=== PATIENT | female | born 1990 | race Caucasian/White ===

== ENCOUNTER 2016-11-27 05:55 | Inpatient (IN) | payer OTHER ==
[~2016-11-27] VITALS: Ht 152.4 cm; Wt 67.6 kg
[2016-11-27] MEDS ORDERED: LACTATED RINGER'S 1,000 ML IV PRN (06:17)
[2016-11-27] MEDS: LACTATED RINGER'S 1,000 ML IV SCH ×3 (06:27→22:13)
[2016-11-27] MEDS ORDERED: LIDOCAINE 1% (MPF) 30 ML INJ INJ PRN (06:30)
[2016-11-27] MEDS ORDERED: IBUPROFEN 600 MG TAB PO PRN (06:30)
[2016-11-27] MEDS ORDERED: MISOPROSTOL 200 MCG TAB PR PRN ×2 (06:30→22:30)
[2016-11-27] MEDS ORDERED: AMPICILLIN 2 GM/NS (PMX) 100 ML IV ONE (06:30)
[2016-11-27] MEDS ORDERED: OXYTOCIN 30 UNITS/LR 500 ML IV SCH ×3 (06:30→08:50)
[2016-11-27] MEDS ORDERED: METHYLERGONOVINE 0.2 MG INJ IM PRN (06:30)
[2016-11-27] MEDS ORDERED: OXYTOCIN 30 UNITS/LR 500 ML IV PRN ×2 (06:30→22:30)
[2016-11-27] MEDS ORDERED: ACETAMINOPHEN/CODEINE #3 TAB PO PRN ×3 (06:30→22:30)
[2016-11-27] MEDS ORDERED: CARBOPROST 250 MCG INJ IM PRN ×2 (06:30→22:30)
[2016-11-27] MEDS ORDERED: BUTORPHANOL 2 MG INJ IV PRN ×2 (06:30)
[2016-11-27 07:22] LABS: ADD SCAN DIFF NO
[2016-11-27 07:38] LABS: BASOPHILS % 0.1 % (0.0-2.0); EOSINOPHILS # 0.1 10^3/ul (0.0-0.5); HEMATOCRIT 38.3 % (37.0-47.0); HEMOGLOBIN 12.9 g/dl (12.0-16.0); LYMPHOCYTES # 2.4 10^3/ul (0.8-2.9); LYMPHOCYTES % 26.7 % (15.0-51.0); MEAN CORPUSCULAR HEMOGLOBIN 30.7 pg (29.0-33.0); MEAN CORPUSCULAR HGB CONC 33.7 g/dl (32.0-37.0); MEAN CORPUSCULAR VOLUME 91.2 fl (82.0-101.0); MEAN PLATELET VOLUME 10.4 fl (7.4-10.4); MONOCYTE # 0.5 10^3/ul (0.3-0.9); MONOCYTES % 5.9 % (0.0-11.0); NEUTROPHIL # 5.8 10^3/ul (1.6-7.5); NEUTROPHILS % 65.8 % (39.0-77.0); PLATELET COUNT 237 10^3/UL (140-415); RED CELL DISTRIBUTION WIDTH 13.3 % (11.5-14.5); WHITE BLOOD COUNT 8.8 10^3/ul (4.8-10.8)
[2016-11-27 07:51] LABS: INR 0.96; PROTIME 12.8 Sec (12.2-14.2)
[2016-11-27 07:52] LABS: PARTIAL THROMBOPLASTIN TIME 25.6 Sec (25.0-35.0)
[2016-11-27] MEDS ORDERED: DINOPROSTONE 10 MG VAG SUPP VAG ONE (08:00)
--- NOTE | 2016-11-27 08:38 | HP ---
Date/Time of Note Date/Time of Note DATE: 11/27/16 TIME: 08:36 OB - History Hx of Present Free Text/Dictation G1 with IUP at 40.2 weeks here for IOL Care: Good Care Ultrasounds: Normal mid trimester US Obstetrical Complications: None Medical Complications: None Past Family/Social History * Past Medical, Surgical, Family and Obstetric Histories reviewed from chart. OB Admission Exam Vital Signs Vital Signs EFW is 8 LB Physical Exam HEENT: WNL Heart: Rhythm Normal Lungs: Clear, Equal Abdomen: WNL Extremities: Normal Reflexes: Normal Cervical Dilatation: 2cm Effacement: 75% Station: -2 Membranes: Intact Last 72 hours Lab Results CBC & BMP 11/27/16 06:20 OB Assessment/Plan Other Assessment: post date here for IOL Other plan: Pitocin Amp for GBS + YENNIFER MARTINEZ MD November 27, 2016 08:38
[2016-11-27] MEDS: AMPICILLIN 1 GM/NS (PMX) 50 ML IV SCH ×3 (11:34→19:32)
[2016-11-27] MEDS ORDERED: FENTAnyl 2MCG/ML-ROPIV 0.2% 100 ML ONE (14:37)
[2016-11-27] MEDS ORDERED: NALOXONE (0.4 MG/ML) INJ IV PRN (17:00)
[2016-11-27] MEDS ORDERED: FENTAnyl 2MCG/ML-ROPIV 0.2% 100 ML BAG EPI SCH (17:00)
[2016-11-27] MEDS: LACTATED RINGER'S 1,000 ML IV* SCH (22:09)
[2016-11-27] MEDS ORDERED: DIBUCAINE 1% 30 GM OINT PR PRN (22:30)
[2016-11-27] MEDS ORDERED: DIPHENHYDRAMINE 25 MG CAP PO PRN (22:30)
[2016-11-27] MEDS ORDERED: ONDANSETRON 4 MG TAB PO PRN (22:30)
[2016-11-27] MEDS ORDERED: ONDANSETRON 4 MG INJ IV PRN (22:30)
[2016-11-27] MEDS ORDERED: DIPHENHYDRAMINE 50 MG INJ IV PRN (22:30)
[2016-11-27] MEDS ORDERED: MAGNESIUM HYDROXIDE 30ML CUP PO PRN (22:30)
[2016-11-27] MEDS ORDERED: LANOLIN 7 GM TUBE TOP PRN (22:30)
[2016-11-27] MEDS ORDERED: NA PHOSPHATE/BIPHOS 133 ML ENEMA PR PRN (22:30)
[2016-11-27] MEDS ORDERED: SENNA/DOCUSATE NA (8.6MG/50MG) TAB PO PRN (22:30)
--- NOTE | 2016-11-27 22:30 | LDN ---
Date/Time of Note Date/Time of Note DATE: 11/27/16 TIME: 22:12 Delivery Summary with h/o without complication (first baby was 5 LBs). she was admitted for IOL and progressed to complete dilation. sh pushed for a short time and vertex delivered. I applied gentle symmetric traction but the anterior shoulder did no deliver. I did not apply excessive traction. I immediately called shoulder dystocia and asked nursing staff to call NICU and apply suprapubic pressure and [place]. RNs sharply flexed the maternal high into maternal abdomen. I applied gentle symmetric traction. I cut a large 2nd degree MLE. Epidural was working well. Anterior shoulder did not deliver. I performed Guillaume maneuver by inserting 2 fingers in to posterior aspect of the anterior shoulder thus applying pressure o rotate the anterior shoulder. I was able to deliver the anterior shoulder. he rest of the body delivered easily. Cord was clamped and cut. a piece of the cord was double clamped for cord gases. placenta was delivered spontaneously and intact. her MLE was extended to 4th degree laceration which was repaired in normal fashion. Th 4th degree was repaired with 4-0 Chromic on SH. the 3rd degree was repaired with 4 Figure of sutures of 2-0 Vicryl in anal sphincter in Posterior, inferior and superior and anterior fashion. 2nd degree was repaired with 3-0 Vicryl. I informed and explined to pt all the events that occurred during . EBL: 300 Placenta Delivered: Spontaneously Meconium: Light Episiotomy: Yes Indication for episiotomy shoulder dystocia Perineal laceration: 4 Laceration repair: see above Anesthesia type: Epidural Sponge & Needle done & correct: Yes All needle counts correct: Yes Any foreign bodies felt in the: No Problems: Infant Delivery Information Sex Sex: female Apgars 1 Minute: 3 5 Minute: 7 Suctioning Nose & mouth suctioned at tonio: Yes Delee suction performed: No Umbilical Cord Umbilical cord with: 3 Vessels Cord presentations: nuchal cord Nuchal cord present X: 1 Cord Blood was obtained: Yes Mother & Baby Disposition Disposition Mom & Baby to Maternity; Good: No Mom transferred to: Other (maternity) Baby to NICU: Yes (fo hours of obervation ) YENNIFER MARTINEZ MD November 27, 2016 22:28
--- NOTE | 2016-11-27 23:19 | DELSUM ---
Delivery Summary A-C Datetime Report Generated by CPN: 11/27/2016 23:19 DELIVERY PERSONNEL Compounding And Finishing Supervisor: Long, Teri MATERNAL INFORMATION Delivery Anesthesia: Epidural Medications in Delivery: oxytocin 30units in 500ml lr Estimated Blood Loss (ml): 300 Placenta Cultured: No Maternal Complications: None RN Comments: SHOULDER DYSTOCIA; NUCHAL CORD TIGHT X1; HEAD OUT AT 2128 AND BABY DELIVERED AT 2130; NICU AND CODE APAGAR CALLED; APGARS 3 AND 7; BABY 7LB 13OZ; LAST WAS AT 38 WEEKS 5LBS AND SOME OZ; PLACENTA TO PATHOLOGY; 2ND DEGREE EPISIOTOMY BEFORE DELIVERY OF HEAD; EXTENDED TO 4TH DEGREE LACERATION REPAIR LABOR SUMMARY EDC: 11/25/2016 00:00 No. Babies in Womb: 1 Attempted: No Labor Anesthesia: Epidural LABOR INFORMATION Reason for Induction: Postterm Cervical Ripening Agents: Cervidil Oxytocin: Augmentation Group B Beta Strep: Positive Antibiotics # of Doses: 4 Antibiotics Time of Last Dose: 11/27/2016 19:30 Steroids Given: None Reason Steroids Not Administered: Not Applicable MEMBRANES Membranes Rupture Method: Artificial Rupture of Membranes: 11/27/2016 12:46 Length of Rupture (hr): 8.73 Amniotic Fluid Color: Clear Amniotic Fluid Amount: Small Amniotic Fluid Odor: None STAGES OF LABOR Stage 3 hr: 0 Stage 3 min: 10 VAGINAL DELIVERY Episiotomy: Median Laceration Extension: Fourth Degree Laceration Type: Perineal; Vaginal Laceration Repair: Yes Initial Vag Sponge Count: 20 Final Vag Sponge Count: 20 Initial Vag Sharps Count: 1 Final Vag Sharps Count: 4 Sponge Count Correct: Yes Sharps Count Correct: Yes BABY A INFORMATION Delivery Date/Time: 11/27/2016 21:30 Method of Delivery: Vaginal Born in Route : No : N/A Forceps: N/A Vacuum Extraction: N/A Shoulder Dystocia : Yes SHOULDER DYSTOCIA BABY A Delivery of Head: 11/27/2016 21:28 Delivery Date/Time: 11/27/2016 21:30 Time Head to Delivery : 2.0 1st Intervention to Resolve: Episiotomy 2nd Intervention to Resolve: McRobert's Maneuver 3rd Intervention to Resolve: Suprapubic Pressure Verify NO Fundal Pressure: No Fundal Pressure Applie Arm Under Symphisis at Del: Left PRESENTATION/POSITION BABY A Presentation: Cephalic Presentation: Cephalic Cephalic Presentation: Vertex Vertex Position: Left Occipital Anterior Breech Presentation: N/A PLACENTA INFORMATION BABY A Placenta Delivery Time : 11/27/2016 21:40 Placenta Method of Delivery: Spontaneous Placenta Status: Delivered SCORES BABY A Heart Rate 1 min: >100 bpm Resp Effort 1 min: Slow, Irregular Reflex Irritability 1 min: No Response Muscle Tone 1 min: Flaccid Color 1 min: Blue/Pale Resuscitation Effort 1 min: Tactile Stimulation SCORE 1 MIN: 3 Heart Rate 5 min: >100 bpm Resp Effort 5 min: Good Cry Reflex Irritability 5 min: Grimace Muscle Tone 5 min: Some Flexion of Extrem Color 5 min: Body [place], Extremit Blue Resuscitation Effort 5 min: Tactile Stimulation SCORE 5 MIN: 7 INFANT INFORMATION BABY A Gestational Age at Delivery: 40.2 Gestational Status: Full Term- 39- 40.6 Weeks Infant Outcome : Liveborn Condition : Fair Sex: Female IDENTIFICATION/MEDS BABY A ID Band Number: [id number] ID Band Location: Right Leg; Left Arm Sensor Applied: No Sensor Number: [id number] Sensor Location : Cord Clamp Vitamin K Given : Not Given Erythromycin Given: Not Given WEIGHT/LENGTH BABY A Birthweight (gm): 3550 Weight (lb): 7 Infant Weight (oz): 13 Length (in): 19.50 Length (cm): 49.53 CORD INFORMATION BABY A No. Cord Vessels: 3 Nuchal Cord : Around Neck x1, Tight Cord Blood Taken: Yes Suction: Mouth; Nose ASSESSMENT BABY A Infant Complications: Shoulder Dystocia Physical Findings at Delivery: Caput Succedaneum Respirations: Tachypnea Surfacing Technician/ALS Called : Yes Care By: AKSHAT JEAN RN Transferred To: NICU
[2016-11-28 00:15] VITALS: BP 115/57; PULSE 85; RESP 19
[2016-11-28] MEDS: WITCH HAZEL/GLYCERIN PAD PR PRN (00:39)
[2016-11-28] MEDS: PIPER-TAZO 3.375 GM IV (PMX) 100 ML IVPB SCH ×5 (00:39→23:34)
[2016-11-28] MEDS: BENZOCAINE 20% 56 ML SPRAY TOP PRN (00:39)
[2016-11-28] MEDS: IBUPROFEN 600 MG TAB PO SCH ×5 (00:40→23:34)
[2016-11-28] MEDS: AMPICILLIN 1 GM/NS (PMX) 50 ML IV SCH ×4 (02:09→11:30)
[2016-11-28 04:00] VITALS: BP 108/60; PULSE 72; RESP 20
[2016-11-28] MEDS: LACTATED RINGER'S 1,000 ML IV* SCH (04:29)
[2016-11-28] MEDS: LACTATED RINGER'S 1,000 ML IV SCH ×3 (06:13→22:13)
[2016-11-28 08:00] VITALS: BP 101/51; PULSE 85; RESP 18
[2016-11-28 08:32] LABS: ADD SCAN DIFF NO
[2016-11-28 08:44] LABS: BASOPHILS % 0.1 % (0.0-2.0); EOSINOPHILS # 0.1 10^3/ul (0.0-0.5); EOSINOPHILS % 0.4 % (0.0-7.0); HEMATOCRIT 31.6 % (37.0-47.0); HEMOGLOBIN 10.4 g/dl (12.0-16.0); LYMPHOCYTES # 2.5 10^3/ul (0.8-2.9); LYMPHOCYTES % 13.8 % (15.0-51.0); MEAN CORPUSCULAR HEMOGLOBIN 30.5 pg (29.0-33.0); MEAN CORPUSCULAR HGB CONC 32.9 g/dl (32.0-37.0); MEAN CORPUSCULAR VOLUME 92.7 fl (82.0-101.0); MEAN PLATELET VOLUME 10.3 fl (7.4-10.4); MONOCYTES % 5.3 % (0.0-11.0); NEUTROPHIL # 14.3 10^3/ul (1.6-7.5); NEUTROPHILS % 79.8 % (39.0-77.0); PLATELET COUNT 175 10^3/UL (140-415); RED BLOOD COUNT 3.41 10^6/ul (4.20-5.40); RED CELL DISTRIBUTION WIDTH 13.4 % (11.5-14.5)
[2016-11-28] MEDS: SENNA/DOCUSATE NA (8.6MG/50MG) TAB PO SCH ×2 (09:44→20:49)
[2016-11-28 16:00] VITALS: BP 104/51; PULSE 77; RESP 16
--- NOTE | 2016-11-28 18:16 | PN ---
Date/Time of Note Date/Time of Note DATE: 11/28/16 TIME: 18:14 OB Subjective Subjective Subjective Patient ambulating. Urinated. Breast-feeding. Feels slight soreness in the perineal area otherwise does not have any complaint. Vaginal bleeding decreased. OB Objective Objective Objective Physical examination: General appearance, alert and oriented 4 patient does not appear to be in any acute distress. Abdomen: Soft. Fundal height at the level of umbilicus and fundus is firm. No fundal tenderness noted. Extremities: No calf tenderness, no click no edema Breast: No evidence of engorgement, mastitis or fissure. Hematology - 72 Hrs Test 11/27/16 06:20 11/28/16 08:00 White Blood Count 8.810^3/ul (4.8-10.8) 18.010^3/ul (4.8-10.8) #H Red Blood Count 4.2010^6/ul (4.20-5.40) 3.4110^6/ul (4.20-5.40) L Hemoglobin 12.9g/dl (12.0-16.0) 10.4g/dl (12.0-16.0) L Hematocrit 38.3% (37.0-47.0) 31.6% (37.0-47.0) L Mean Corpuscular Volume 91.2fl (82.0-101.0) 92.7fl (82.0-101.0) Mean Corpuscular Hemoglobin 30.7pg (29.0-33.0) 30.5pg (29.0-33.0) Mean Corpuscular Hemoglobin Concent 33.7g/dl (32.0-37.0) 32.9g/dl (32.0-37.0) Red Cell Distribution Width 13.3% (11.5-14.5) 13.4% (11.5-14.5) Platelet Count 76613^3/UL (140-415) 24727^3/UL (140-415) # Mean Platelet Volume 10.4fl (7.4-10.4) 10.3fl (7.4-10.4) Neutrophils % 65.8% (39.0-77.0) 79.8% (39.0-77.0) H Lymphocytes % 26.7% (15.0-51.0) 13.8% (15.0-51.0) L Monocytes % 5.9% (0.0-11.0) 5.3% (0.0-11.0) Eosinophils % 1.0% (0.0-7.0) 0.4% (0.0-7.0) Basophils % 0.1% (0.0-2.0) 0.1% (0.0-2.0) Nucleated Red Blood Cells % 0.0/100WBC (0.0-0.0) 0.0/100WBC (0.0-0.0) Neutrophils # 5.810^3/ul (1.6-7.5) 14.310^3/ul (1.6-7.5) H Lymphocytes # 2.410^3/ul (0.8-2.9) 2.510^3/ul (0.8-2.9) Monocytes # 0.510^3/ul (0.3-0.9) 1.010^3/ul (0.3-0.9) H Eosinophils # 0.110^3/ul (0.0-0.5) 0.110^3/ul (0.0-0.5) Basophils # 0.010^3/ul (0.0-0.1) 0.010^3/ul (0.0-0.1) Nucleated Red Blood Cells # 0.010^3/ul (0.0-0.0) 0.010^3/ul (0.0-0.0) OB Assessment/Plan Other Assessment: Status post day #1 Delivery complicated by shoulder dystocia and fourth degree perineal laceration , repaired Patient currently on broad-spectrum IV antibiotics. Leukocytosis, likely related to recent delivery. Patient is asymptomatic Consider DC antibiotics after 24 hours IV Routine care Patient to be on continuous stool softener JENNIFER KENNEY MD November 28, 2016 18:16
[2016-11-28 19:50] VITALS: BP 116/59; PULSE 82; RESP 19
[2016-11-29 04:00] VITALS: BP 120/64; PULSE 72; RESP 18
[2016-11-29] MEDS: IBUPROFEN 600 MG TAB PO SCH ×3 (05:33→18:25)
[2016-11-29] MEDS: LACTATED RINGER'S 1,000 ML IV SCH (06:13)
[2016-11-29] MEDS ORDERED: DIPHTH/TET/ACEL PERTUSS (ADULT) 0.5 ML VIAL IM* ONE (09:00)
[2016-11-29] MEDS ORDERED: VARICELLA VACCINE LIVE/PF 1,350 UNIT/0.5 ML ML SC* ONE (09:00)
[2016-11-29] MEDS ORDERED: MEASLES,MUMPS,RUBELLA VACCINE INJ SC* ONE (09:00)
[2016-11-29] MEDS: SENNA/DOCUSATE NA (8.6MG/50MG) TAB PO SCH (09:00)
[2016-11-29 09:50] VITALS: BP 113/54; PULSE 75; RESP 16
[2016-11-29] MEDS: BENZOCAINE 20% 56 ML SPRAY TOP PRN (12:39)
[2016-11-29] MEDS: WITCH HAZEL/GLYCERIN PAD PR PRN (12:40)
[2016-11-29 16:15] VITALS: BP 116/66; PULSE 71; RESP 18
--- NOTE | 2016-11-29 17:56 | DS ---
Date/Time of Note Date/Time of Note DATE: 11/29/16 TIME: 17:52 Obstetrical Discharge Record Final Diagnosis Final Diagnosis: Term delivered Vaginal Delivery Obstetrical Delivery: Spontaneous, Laceration, Repaired Other Delivery information Current Medications Medications (Trade) Dose Ordered Sig/Simeon Route PRN Reason Start Time Stop Time Status Last Admin Dose Admin Lactated Ringer's 1,000 ml @ 125 mls/hr Q8H IV 11/27/16 06:13 11/29/16 13:28 DC 11/27/16 14:04 Ampicillin 100 ml @ 100 mls/hr ONCE ONCE IV 11/27/16 06:30 11/27/16 07:29 DC 11/27/16 07:31 Ampicillin (Ampicillin 1 Gm/ NS (Pmx)) 50 ml @ 100 mls/hr Q4H IV 11/27/16 11:30 11/28/16 16:34 DC 11/28/16 02:09 Butorphanol Tartrate (Stadol) 1 mg Q2H PRN IV PAIN 11/27/16 06:30 11/28/16 16:35 DC Butorphanol Tartrate (Stadol) 2 mg Q2H PRN IV PAIN 11/27/16 06:30 11/28/16 16:35 DC Lidocaine 30 ml 30 ml ONCE PRN INJ EPISIOTOMY/TEARING 11/27/16 06:30 11/28/16 16:35 DC Oxytocin/Lactated Ringer's 500 ml @ 125 mls/hr ONCE -MAY REPEAT X1 IV 11/27/16 06:30 11/28/16 16:34 DC 11/27/16 23:22 Oxytocin/Lactated Ringer's 500 ml @ 125 mls/hr ONCE IV 11/27/16 06:30 11/28/16 16:34 DC Ibuprofen (Motrin) 600 mg ONCE PRN PO Mild Pain (Pain Score 1-3) 11/27/16 06:30 11/28/16 16:35 DC Acetaminophen/ Codeine Phosphate 2 tab 2 tab ONCE PRN PO Moderate to Severe Pain (4-10) 11/27/16 06:30 11/28/16 16:35 DC Lactated Ringer's 1,000 ml @ 2,000 mls/hr Q30M PRN IV PRE-EPIDURAL BOLUS 11/27/16 06:17 11/28/16 16:34 DC 11/27/16 13:12 Oxytocin/Lactated Ringer's 500 ml @ 0 mls/hr ONCE PRN IV For Hemorrhage Management 11/27/16 06:30 11/28/16 16:34 DC Methylergonovine Maleate (Methergine) 0.2 mg ONCE PRN IM VAGINAL BLEEDING 11/27/16 06:30 Carboprost Tromethamine (Hemabate) 250 mcg ONCE PRN IM VAGINAL BLEEDING 11/27/16 06:30 11/28/16 16:35 DC Misoprostol (Cytotec) 1,000 mcg ONCE PRN GA VAGINAL BLEEDING 11/27/16 06:30 11/28/16 16:35 DC Dinoprostone 10 mg 10 mg ONCE ONCE VAG 11/27/16 08:00 11/27/16 08:01 DC 11/27/16 08:05 Oxytocin/Lactated Ringer's 500 ml @ 0 mls/hr Q0M IV 11/27/16 08:50 11/28/16 16:35 DC 11/27/16 10:02 Fentanyl/ Ropivacaine 100 ml @ STK-MED ONCE .ROUTE 11/27/16 14:37 11/27/16 14:38 DC Naloxone HCl (Narcan) 0.2 mg Q2M PRN IV FOR RESP RATE 8 OR LESS 11/27/16 17:00 11/28/16 16:35 DC Fentanyl/ Ropivacaine 100 ml 100 ml EPIDURAL (PCEA) EPI 11/27/16 17:00 11/28/16 16:35 DC Lactated Ringer's (Lr) 1,000 ml @ 125 mls/hr Q8H IV* 11/27/16 22:09 11/28/16 16:35 DC 11/28/16 04:29 Ibuprofen (Motrin) 600 mg Q6 PO 11/28/16 00:00 11/29/16 12:35 Acetaminophen/ Codeine Phosphate (Tylenol No.3) 1 tab Q4H PRN PO PAIN LEVEL 1-5 11/27/16 22:30 Acetaminophen/ Codeine Phosphate (Tylenol No.3) 2 tab Q4H PRN PO PAIN LEVEL 6-10 11/27/16 22:30 Ondansetron HCl (Zofran Inj) 4 mg Q6H PRN IV NAUSEA AND/OR VOMITING 11/27/16 22:30 11/28/16 16:35 DC Ondansetron HCl (Zofran Tab) 4 mg Q6H PRN PO NAUSEA AND/OR VOMITING 11/27/16 22:30 11/28/16 16:35 DC Diphenhydramine HCl (Benadryl) 25 mg Q6H PRN PO PRURITUS 11/27/16 22:30 11/28/16 16:35 DC Diphenhydramine HCl (Benadryl) 25 mg Q6H PRN IV PRURITUS 11/27/16 22:30 Senna/Docusate Sodium (Senokot-S) 1 tab BID PO 11/28/16 09:00 11/29/16 09:00 Senna/Docusate Sodium (Senokot-S) 1 tab BID PRN PO CONSTIPATION 11/27/16 22:30 11/28/16 16:35 DC Magnesium Hydroxide (Milk Of Mag) 30 ml Q12H PRN PO CONSTIPATION 11/27/16 22:30 Sodium Biphosphate/ Sodium Phosphate (Fleet Enema) 133 ml DAILY PRN GA CONSTIPATION 11/27/16 22:30 Witch Vida/ Glycerin (Tucks Pads) 1 pad BEDSIDE MEDICATION PRN GA HEMORRHOID/EPISIOTMY PAIN 11/27/16 22:30 11/29/16 12:40 Benzocaine (Dermoplast [employer]) 1 spray BEDSIDE MEDICATION PRN TOP HEMORRHOID/EPISIOTMY PAIN 11/27/16 22:30 11/29/16 12:39 Dibucaine (Nupercainal) 1 applic BEDSIDE MEDICATION PRN GA HEMORRHOID/EPISIOTMY PAIN 11/27/16 22:30 11/28/16 00:39 Lanolin (Nln-N-Gtuchv) 1 applic BEDSIDE MEDICATION PRN TOP BEDSIDE FOR DOMENIC TO NIPPLES 11/27/16 22:30 11/28/16 00:40 Measles/Mumps/ Rubella Vaccine Live (Mmr Ii Vaccine) 0.5 ml ONCE ONCE SC* 11/29/16 09:00 11/29/16 09:00 DC Diphtheria/ Tetanus/Acell Pertussis (Adacel) 0.5 ml ONCE ONCE IM* 11/29/16 09:00 11/29/16 09:01 DC Varicella Virus Vaccine Live 1350 unit 1,350 unit ONCE ONCE SC* 11/29/16 09:00 11/29/16 09:00 DC Oxytocin/Lactated Ringer's 500 ml @ 0 mls/hr ONCE PRN IV For Hemorrhage Management 11/27/16 22:30 Carboprost Tromethamine (Hemabate) 250 mcg ONCE PRN IM VAGINAL BLEEDING 11/27/16 22:30 Misoprostol 1000 mcg 1,000 mcg ONCE PRN GA VAGINAL BLEEDING 11/27/16 22:30 Piperacillin Sod/ Tazobactam Sod (Zosyn 3.375gm/ 100 ml (Pmx)) 100 ml @ 200 mls/hr Q6 IVPB 11/28/16 00:00 11/29/16 00:00 DC 11/28/16 23:34 Condition on Discharge Physical Assessment Voiding: Yes Bowel Movement: Yes Breast: Soft, non-tender Fundus: Firm Episiotomy: Post day 1 Patient is doing well, Ambulatory She is afebrile Abdomen is soft , Fundus is firm Moderate amount of lochia Breasts are soft, Nipples are intact No calf tenderness. Perineum is healing well. Breast feeding the new born. Calf Tenderness: Yes Patient Condition: Good JEROMY IBARRA MD November 29, 2016 17:56
[2016-11-29 20:00] VITALS: BP 133/82; PULSE 67; RESP 20
== END 2016-11-29 21:40 | disposition home or self-care (01) | DRG 775 ==
LOC: L-D 05:55 → PP1 11-28 00:05
PROVIDERS: ADMIT Specialist; ATTEND Specialist
PROC: 0W8NXZZ Division of Female Perineum, External Approach (ICD-10-PCS; 2016-11-27)
PROC: 10E0XZZ Delivery of Products of Conception, External Approach (ICD-10-PCS; principal; 2016-11-27 06:00)
DX: O48.0 Post-term pregnancy (principal); O69.81X0 Labor and delivery complicated by cord around neck, without compression, not applicable or unspecified; Z3A.40 40 weeks gestation of pregnancy; Z37.0 Single live birth
CPT/HCPCS: 62319; 85025; 85610; 85730; 86592; 86900; 86901; 87340; 88307; 90715; 99464; J0290; J2543; J2590; J3010; J7120